=== PATIENT | male | born 1975 | race African-American/Black ===

== ENCOUNTER 2016-11-25 04:24 | Emergency (ER) | payer SELFPAY ==
[~2016-11-25] VITALS: Ht 167.6 cm; Wt 63.5 kg
[~2016-11-25 04:24] MED LIST: OFLO.3%A AD
[2016-11-25 04:26] VITALS: BP 137/65; PULSE 68; RESP 16; TEMP 98; O2SAT 98
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
[2016-11-25] MEDS ORDERED: FAMOTIDINE 20 MG/2 ML VIAL IV PUSH STA (04:49)
[2016-11-25] MEDS ORDERED: diphenhydrAMINE HCL 50 MG/ML VIAL IV PUSH ONE (05:00)
[2016-11-25] MEDS ORDERED: methylPREDNISolone SOD SUCC 125 MG/2 ML VIAL IV PUSH ONE (05:00)
== END 2016-11-25 06:09 | disposition home or self-care (01) ==
LOC: NEPD 04:24
DX: L50.9 Urticaria, unspecified (principal)
CPT/HCPCS: 96374; 96375; 99284; J1200; J2930